=== PATIENT | female | born 2000 | race African-American/Black ===

== ENCOUNTER 2019-12-25 10:11 | Emergency (ER) | payer SELFPAY ==
[~2019-12-25] VITALS: Ht 154.9 cm; Wt 86.0 kg
[2019-12-25 10:13] VITALS: BP 124/58
[2019-12-25] MEDS ORDERED: BACITRACIN ZINC OINT UDPKT TOP ONE (11:00)
[2019-12-25] MEDS ORDERED: LIDOCAINE 1%/EPI 1:100,000 10 ML VIAL IJ ONE (11:00)
== END 2019-12-25 12:38 | disposition home or self-care (01) ==
LOC: ER 10:11
DX: L02.31 Cutaneous abscess of buttock (principal)
CPT/HCPCS: 10060; 99283; J3490

== ENCOUNTER 2019-12-27 09:33 | Emergency (ER) | payer MEDICAID ==
[~2019-12-27] VITALS: Ht 154.9 cm; Wt 86.0 kg
[2019-12-27 10:15] VITALS: BP 111/59
== END 2019-12-27 10:36 | disposition home or self-care (01) ==
LOC: ER 09:33
DX: M79.652 Pain in left thigh (principal); Z48.00 Encounter for change or removal of nonsurgical wound dressing
CPT/HCPCS: 10060; 99282

== ENCOUNTER 2019-12-29 07:54 | Emergency (ER) | payer MEDICAID ==
[~2019-12-29] VITALS: Ht 154.9 cm; Wt 81.0 kg
[2019-12-29 08:02] VITALS: BP 100/56
== END 2019-12-29 08:56 | disposition home or self-care (01) ==
LOC: ER 07:54
DX: L05.01 Pilonidal cyst with abscess (principal)
CPT/HCPCS: 99281

== ENCOUNTER 2020-01-06 12:33 | Emergency (ER) | payer MEDICAID ==
[~2020-01-06] VITALS: Ht 154.9 cm; Wt 86.0 kg
[2020-01-06 16:05] VITALS: BP 115/60
== END 2020-01-06 16:05 | disposition home or self-care (01) ==
LOC: ER 12:44
DX: Z48.00 Encounter for change or removal of nonsurgical wound dressing (principal)
CPT/HCPCS: 99281